=== PATIENT | female | born 1965 | race Native Hawaiian/Other Pacific Islander ===

== ENCOUNTER 2017-03-23 11:29 | Outpatient (CLI) | payer OTHER | END 2017-03-23 12:30 | disposition home or self-care (01) | LOC: RAD 11:29 | DX: M25.532 Pain in left wrist (principal) ==

== ENCOUNTER 2017-04-21 09:55 | Outpatient (CLI) | payer OTHER | END 2017-04-21 11:00 | disposition home or self-care (01) | LOC: RAD 09:55 | DX: M54.12 Radiculopathy, cervical region (principal) ==

== ENCOUNTER 2017-07-01 08:37 | Outpatient (CLI) | payer OTHER | END 2017-07-01 10:00 | disposition home or self-care (01) | LOC: MRI 08:37 | DX: M54.31 Sciatica, right side (principal) ==

== ENCOUNTER 2017-10-07 09:02 | Outpatient (CLI) | payer OTHER ==
[2017-10-07 09:23] LABS: PLATELET COUNT 194 K/uL (152-353)
== END 2017-10-08 04:36 | disposition home or self-care (01) ==
LOC: LABW 09:02
PROVIDERS: Internal Medicine Cardiovascular Disease
DX: E78.4 Other hyperlipidemia (principal); Z79.899 Other long term (current) drug therapy; Z51.81 Encounter for therapeutic drug level monitoring
CPT/HCPCS: 36415; 80061; 85027

== ENCOUNTER 2017-11-23 12:58 | Outpatient (CLI) | payer OTHER | END 2017-11-23 19:26 | disposition home or self-care (01) | LOC: MAMMO 12:58 | DX: Z12.31 Encounter for screening mammogram for malignant neoplasm of breast (principal) ==

== ENCOUNTER 2017-11-27 08:16 | Outpatient (CLI) | payer OTHER | END 2017-11-27 22:59 | disposition home or self-care (01) | LOC: US 08:16 | DX: R10.13 Epigastric pain (principal) ==

== ENCOUNTER 2017-12-08 07:05 | Outpatient (CLI) | payer OTHER ==
[~2017-12-08] VITALS: Ht 170.2 cm; Wt 74.8 kg
== END 2017-12-08 22:52 | disposition home or self-care (01) ==
LOC: NM 07:05
DX: R07.89 Other chest pain (principal)
CPT/HCPCS: A9500; J2785

== ENCOUNTER 2017-12-21 09:36 | Inpatient (IN) | payer OTHER ==
[~2017-12-21] VITALS: Ht 170.2 cm; Wt 75.9 kg
[2017-12-21] VITALS (31 sets, daily range): BP systolic 88–160; BP diastolic 50–101; TEMP 99
[2017-12-21 14:32] LABS: PLATELET COUNT 206 K/uL (152-353)
[2017-12-21 14:46] LABS: PARTIAL THROMBOPLASTIN TIME 23.9 SECONDS (24.5-33.6)
[2017-12-21 15:00] LABS: POTASSIUM 3.1 mmol/L (3.6-5.2)
[2017-12-21 21:40] LABS: PLATELET COUNT 217 K/uL (152-353)
[2017-12-21 21:58] LABS: POTASSIUM 4.3 mmol/L (3.6-5.2)
[2017-12-21 22:00] LABS: PARTIAL THROMBOPLASTIN TIME 22.7 SECONDS (24.5-33.6)
[2017-12-22] VITALS (38 sets, daily range): BP systolic 98–179; BP diastolic 53–109; TEMP 97.9–98.4; Ht 170.2 cm; Wt 75.9 kg
[2017-12-22 04:17] LABS: PLATELET COUNT 215 K/uL (152-353)
[2017-12-23] VITALS (9 sets, daily range): BP systolic 93–133; BP diastolic 44–82; TEMP 97.6–98.8
[2017-12-23 06:39] LABS: PLATELET COUNT 177 K/uL (152-353)
[2017-12-23 06:49] LABS: POTASSIUM 3.5 mmol/L (3.6-5.2)
== END 2017-12-23 18:25 | disposition home or self-care (01) | DRG 418 ==
LOC: OR 09:36 → ICU 15:13 → OR 12-22 07:00 → MED/SURG 12-22 14:45
PROVIDERS: ADMIT Student in an Organized Health Care Education/Training Program
PROC: 5A1935Z Respiratory Ventilation, Less than 24 Consecutive Hours (ICD-10-PCS; 2017-12-21)
PROC: 0BH17EZ Insertion of Endotracheal Airway into Trachea, Via Natural or Artificial Opening (ICD-10-PCS; 2017-12-21)
PROC: 04HL33Z Insertion of Infusion Device into Left Femoral Artery, Percutaneous Approach (ICD-10-PCS; 2017-12-21)
PROC: 0FT44ZZ Resection of Gallbladder, Percutaneous Endoscopic Approach (ICD-10-PCS; principal; 2017-12-23)
DX: K81.1 Chronic cholecystitis (principal); T88.6XXA Anaphylactic reaction due to adverse effect of correct drug or medicament properly administered, initial encounter; L29.8 Other pruritus; R06.02 Shortness of breath; R51 Headache
CPT/HCPCS: 36591; 36600; 51702; 80048; 80053; 82550; 82805; 82962; 84484; 85027; 85610; 85730; 94002; 94003; 94664; J0180; J0132; J0171; J0330; J0461; J0690; J1100; J1170; J1200; J1885; J2001; J2250; J2405; J2704; J2765; J3010; J3490

== ENCOUNTER 2018-01-04 13:55 | Emergency (ER) | payer OTHER ==
[~2018-01-04] VITALS: Ht 170.2 cm; Wt 74.8 kg
[2018-01-04 18:15] LABS: PLATELET COUNT 294 K/uL (152-353)
[2018-01-04 19:20] VITALS: BP 188/96; TEMP 98.2
== END 2018-01-04 19:21 | disposition home or self-care (01) ==
LOC: ED 13:55
DX: R07.89 Other chest pain (principal)
CPT/HCPCS: 36415; 80053; 85027; 99283

== ENCOUNTER 2018-01-13 09:14 | Outpatient (CLI) | payer OTHER | END 2018-01-13 21:27 | disposition home or self-care (01) | LOC: RAD 09:14 | DX: M79.672 Pain in left foot (principal) ==

== ENCOUNTER 2018-03-26 09:18 | Outpatient (CLI) | payer OTHER | END 2018-03-26 22:30 | disposition home or self-care (01) | LOC: RAD 09:18 | DX: M85.89 Other specified disorders of bone density and structure, multiple sites (principal); M17.0 Bilateral primary osteoarthritis of knee ==

== ENCOUNTER 2018-03-31 09:47 | Outpatient (CLI) | payer OTHER | END 2018-03-31 22:15 | disposition home or self-care (01) | LOC: RAD 09:47 | DX: M79.605 Pain in left leg (principal) ==

== ENCOUNTER 2018-04-27 08:01 | Emergency (ER) | payer OTHER ==
[~2018-04-27] VITALS: Ht 170.2 cm; Wt 74.8 kg
[2018-04-27 08:05] VITALS: TEMP 97.5
[2018-04-27 09:36] LABS: PLATELET COUNT 241 K/uL (152-353)
[2018-04-27 10:03] LABS: POTASSIUM 3.7 mmol/L (3.6-5.2)
[2018-04-27 10:57] VITALS: BP 122/87
== END 2018-04-27 10:57 | disposition home or self-care (01) ==
LOC: ED 08:01
DX: M54.5 Low back pain (principal); M46.86 Other specified inflammatory spondylopathies, lumbar region
CPT/HCPCS: 36415; 80053; 85027; 99283

== ENCOUNTER 2018-11-30 07:34 | Day surgery (SDC) | payer OTHER ==
[2018-11-30 08:31] LABS: PLATELET COUNT 215 K/uL (152-353)
[2018-11-30 08:36] LABS: POTASSIUM 3.9 mmol/L (3.6-5.2)
== END 2018-11-30 10:37 | disposition home or self-care (01) ==
LOC: OR 07:34
PROVIDERS: Student in an Organized Health Care Education/Training Program
PROC: 0DB68ZZ Excision of Stomach, Via Natural or Artificial Opening Endoscopic (ICD-10-PCS; principal; 2018-11-30)
PROC: 0D738ZZ Dilation of Lower Esophagus, Via Natural or Artificial Opening Endoscopic (ICD-10-PCS; 2018-11-30)
DX: K29.50 Unspecified chronic gastritis without bleeding (principal); K25.9 Gastric ulcer, unspecified as acute or chronic, without hemorrhage or perforation; K22.2 Esophageal obstruction; R13.19 Other dysphagia; R10.13 Epigastric pain
CPT/HCPCS: 80053; 85027; J2001; J2704

== ENCOUNTER 2018-12-14 07:48 | Day surgery (SDC) | payer OTHER | END 2018-12-15 10:57 | disposition home or self-care (01) | LOC: OR 07:48 | PROC: 0DBM8ZZ Excision of Descending Colon, Via Natural or Artificial Opening Endoscopic (ICD-10-PCS; principal; 2018-12-14) | DX: K63.5 Polyp of colon (principal) | CPT/HCPCS: J2001; J2405; J2704; J3490 ==

== ENCOUNTER 2019-02-23 09:51 | Day surgery (SDC) | payer OTHER | END 2019-02-23 12:20 | disposition home or self-care (01) | LOC: OR 09:51 | PROC: 3E0R33Z Introduction of Anti-inflammatory into Spinal Canal, Percutaneous Approach (ICD-10-PCS; principal; 2019-02-23) | PROC: B01BYZZ Fluoroscopy of Spinal Cord using Other Contrast (ICD-10-PCS; 2019-02-23) | DX: M51.16 Intervertebral disc disorders with radiculopathy, lumbar region (principal) | CPT/HCPCS: J1020 ==

== ENCOUNTER 2019-03-22 07:49 | Day surgery (SDC) | payer OTHER ==
[~2019-03-22] VITALS: Ht 30.5 cm; Wt 0.5 kg
== END 2019-03-22 09:20 | disposition home or self-care (01) ==
LOC: OR 07:49
PROC: 3E0R33Z Introduction of Anti-inflammatory into Spinal Canal, Percutaneous Approach (ICD-10-PCS; principal; 2019-03-22)
PROC: B01BYZZ Fluoroscopy of Spinal Cord using Other Contrast (ICD-10-PCS; 2019-03-22)
DX: M51.16 Intervertebral disc disorders with radiculopathy, lumbar region (principal)
CPT/HCPCS: J1020

== ENCOUNTER 2019-04-21 08:22 | Outpatient (CLI) | payer OTHER | END 2019-04-21 09:45 | disposition home or self-care (01) | LOC: MRI 08:22 | DX: M51.16 Intervertebral disc disorders with radiculopathy, lumbar region (principal); M25.50 Pain in unspecified joint; H35.30 Unspecified macular degeneration ==

== ENCOUNTER 2019-05-17 09:37 | Outpatient (CLI) | payer OTHER | END 2019-05-17 20:15 | disposition home or self-care (01) | LOC: RESP 09:37 | DX: M51.16 Intervertebral disc disorders with radiculopathy, lumbar region (principal) | CPT/HCPCS: 95885; 95911 ==

== ENCOUNTER 2019-06-10 11:36 | Emergency (ER) | payer OTHER ==
[~2019-06-10] VITALS: Ht 170.2 cm; Wt 54.4 kg
[2019-06-10 11:43] VITALS: BP 120/62; TEMP 98.4
== END 2019-06-10 12:33 | disposition home or self-care (01) ==
LOC: ED 11:36
DX: L30.8 Other specified dermatitis (principal)
CPT/HCPCS: 99282

== ENCOUNTER 2019-06-24 09:03 | Outpatient (CLI) | payer OTHER ==
[2019-06-24 09:57] LABS: PLATELET COUNT 220 K/uL (152-353)
== END 2019-06-24 21:27 | disposition home or self-care (01) ==
LOC: MRI 09:03
PROVIDERS: Pain Medicine Interventional Pain Medicine
DX: M54.12 Radiculopathy, cervical region (principal); L29.8 Other pruritus
CPT/HCPCS: 36415; 80053; 80074; 81000; 82784; 82785; 83520; 83540; 83550; 84439; 84443; 85027; 85651; 86038; 86060; 86160; 86235; 86352; 86376; 86430

== ENCOUNTER 2019-08-02 09:26 | Day surgery (SDC) | payer OTHER | END 2019-08-02 11:50 | disposition home or self-care (01) | LOC: OR 09:26 | PROC: 3E0R33Z Introduction of Anti-inflammatory into Spinal Canal, Percutaneous Approach (ICD-10-PCS; principal; 2019-08-02) | PROC: B01BYZZ Fluoroscopy of Spinal Cord using Other Contrast (ICD-10-PCS; 2019-08-02) | DX: M50.123 Cervical disc disorder at C6-C7 level with radiculopathy (principal) | CPT/HCPCS: J1020 ==

== ENCOUNTER 2019-08-23 09:58 | Day surgery (SDC) | payer OTHER | END 2019-08-23 13:35 | disposition home or self-care (01) | LOC: OR 09:58 | PROC: 3E0R33Z Introduction of Anti-inflammatory into Spinal Canal, Percutaneous Approach (ICD-10-PCS; principal; 2019-08-23) | PROC: B01BYZZ Fluoroscopy of Spinal Cord using Other Contrast (ICD-10-PCS; 2019-08-23) | DX: M50.123 Cervical disc disorder at C6-C7 level with radiculopathy (principal) | CPT/HCPCS: J1020 ==

== ENCOUNTER 2019-10-19 12:24 | Outpatient (CLI) | payer OTHER | END 2019-10-19 20:20 | disposition home or self-care (01) | LOC: RAD 12:24 | DX: M51.16 Intervertebral disc disorders with radiculopathy, lumbar region (principal); M54.9 Dorsalgia, unspecified ==

== ENCOUNTER 2019-11-22 10:18 | Outpatient (CLI) | payer OTHER | END 2019-11-22 19:41 | disposition home or self-care (01) | LOC: MRI 10:18 | DX: M51.16 Intervertebral disc disorders with radiculopathy, lumbar region (principal) ==